=== PATIENT | male | born 1955 | race Two or more races ===

== ENCOUNTER 2021-03-08 13:17 | Inpatient (IN) | payer MEDICARE, MEDICAID ==
[2021-03-08] VITALS (28 sets, daily range): BP systolic 70–116; BP diastolic 23–78
[~2021-03-08] VITALS: Ht 177.8 cm; Wt 119.0 kg
[2021-03-08 14:27] LABS: Basophils # (auto) 0.1 10 ^3/uL (0-0.2); Basophils % (auto) 0.4 % (0.0-2.0); Eosinophils # (auto) 0.1 10 ^3/uL (0-0.8); Eosinophils % (auto) 0.8 % (0.0-7.0); Hematocrit 12.6 % (41.0-53.0); Lymphocytes # (auto) 0.7 10 ^3/uL (0.4-5.4); Lymphocytes % (auto) 4.4 % (10.0-50.0); Mean Corpuscular Hemoglobin 32.5 pg (28.0-32.0); Mean Corpuscular Hgb Conc. 32.1 g/dL (32.0-36.0); Mean Corpuscular Volume 101.5 fL (80.0-100.0); Monocytes # (auto) 0.8 10 ^3/uL (0-1.3); Monocytes % (auto) 5.3 % (0.0-12.0); Neutrophils # (auto) 13.1 10 ^3/uL (1.6-8.6); Neutrophils % (auto) 89.1 % (37.0-80.0); Nucleated Red Blood Cells % 0.4 %; Red Blood Cells 1.24 10^6/uL (4.5-5.90); Red Cell Distribution Width 18.7 % (11.8-14.3); White Blood Cell 14.8 10^3/uL (4.4-10.8)
[2021-03-08 14:38] LABS: INR 1.11 (0.9-1.15); Partial Thromboplastin Time 34.4 sec (23.0-31.2)
[2021-03-08 14:49] LABS: Albumin 2.3 g/dL (3.4-5.0); Calcium 8.4 mg/dL (8.5-10.1); Magnesium 2.7 mg/dL (1.6-2.6)
[2021-03-08 14:50] LABS: Lactic Acid w/Reflex 4.1 mmol/L (0.4-2.0)
[2021-03-08 14:56] LABS: BUN/Creatinine Ratio 11.7; Bilirubin, Total 0.4 mg/dL (0.2-1.0); Total Protein 6.3 g/dL (6.4-8.2)
[2021-03-08 15:00] LABS: Potassium 5.9 mmol/L (3.5-5.1)
[2021-03-08] MEDS ORDERED: CALCIUM GLUC 1,000mg/50ml-NS 50 ML IV ONE (15:15)
[2021-03-08] MEDS ORDERED: DEXTROSE (50%) 50ML SYRG IV ONE (15:15)
[2021-03-08] MEDS ORDERED: ALBUTEROL SULF 2.5 MG/0.5ML(0.5%) NEB SOLN NEB ONE (15:15)
[2021-03-08] MEDS ORDERED: InsuLIN REG 1unit/0.01ml Soln (100units/ml) IV ONE (15:15)
[2021-03-08] MEDS ORDERED: SODIUM ZIRCONIUM CYCL 10 GM PAK PO ONE (15:15)
[2021-03-08] MEDS ORDERED: SODIUM BICARBONATE 8.4 % INJ 50ML VIAL IV ONE (15:15)
[2021-03-08] MEDS ORDERED: SODIUM BICARBONATE 8.4% INJ 50ML SYRINGE ONE (15:18)
[2021-03-08] MEDS ORDERED: DEXTROSE 50% SYRINGE 50 ML IV ONE (15:18)
[2021-03-08] MEDS ORDERED: ACETAMINOPHEN 500 MG TAB PO PRN (15:45)
[2021-03-08] MEDS ORDERED: NITROGLYCERIN 0.4 MG SL TAB SL PRN (15:45)
[2021-03-08] MEDS ORDERED: VANCOMYCIN PER PHARMACY 0 MG IV SCH (15:45)
[2021-03-08] MEDS ORDERED: ONDANSETRON HCL 4 MG/2 ML VIAL IV PRN (15:45)
[2021-03-08] MEDS ORDERED: MORPHINE SULFATE INJECTION 2 MG/ML SYRG IV PRN ×2 (15:45)
[2021-03-08] MEDS ORDERED: hydrALAZINE HCL 20 MG/ML VL IV PRN (15:45)
[2021-03-08] MEDS: PIPERACILLIN-TAZOB 3.375GM 100 ML IV SCH ×2 (16:00→23:04)
[2021-03-08] MEDS ORDERED: D5W 5% IV ONE (16:30)
[2021-03-08] MEDS ORDERED: VANCOMYCIN IV ONE (16:30)
[2021-03-08] MEDS ORDERED: DEXTROSE (50%) 50ML SYRG IV PRN (18:45)
[2021-03-08] MEDS: InsuLIN REG 1unit/0.01ml Soln (100units/ml) SC SCH (20:00)
[2021-03-08] MEDS: ACCU-CHEK COMFORT CURVE STRIP VI SCH (20:00)
[2021-03-08] MEDS: METOPROLOL TARTRATE 25 MG TAB PO SCH (22:00)
[2021-03-08] MEDS: ATORVASTATIN 20 MG TAB PO SCH (23:03)
[2021-03-09] VITALS (66 sets, daily range): BP systolic 80–165; BP diastolic 21–68
[2021-03-09] MEDS: InsuLIN REG 1unit/0.01ml Soln (100units/ml) SC SCH ×6 (00:18→20:00)
[2021-03-09] MEDS: ACCU-CHEK COMFORT CURVE STRIP VI SCH ×6 (00:18→20:17)
[2021-03-09] MEDS: PIPERACILLIN-TAZOB 3.375GM 100 ML IV SCH (04:00)
[2021-03-09 05:52] LABS: Basophils # (auto) 0 10 ^3/uL (0-0.2); Eosinophils # (auto) 0.1 10 ^3/uL (0-0.8); Eosinophils % (auto) 0.5 % (0.0-7.0); Lymphocytes # (auto) 0.8 10 ^3/uL (0.4-5.4)
[2021-03-09 05:53] LABS: Basophils % (auto) 0.3 % (0.0-2.0); Hematocrit 17.6 % (41.0-53.0); Lymphocytes % (auto) 6.9 % (10.0-50.0); Mean Corpuscular Hemoglobin 31.8 pg (28.0-32.0); Mean Corpuscular Hgb Conc. 33.4 g/dL (32.0-36.0); Mean Corpuscular Volume 95.2 fL (80.0-100.0); Monocytes # (auto) 0.8 10 ^3/uL (0-1.3); Monocytes % (auto) 6.1 % (0.0-12.0); Neutrophils # (auto) 10.7 10 ^3/uL (1.6-8.6); Neutrophils % (auto) 86.2 % (37.0-80.0); Nucleated Red Blood Cells % 0.5 %; Red Blood Cells 1.85 10^6/uL (4.5-5.90); Red Cell Distribution Width 18.6 % (11.8-14.3); White Blood Cell 12.4 10^3/uL (4.4-10.8)
[2021-03-09 06:10] LABS: BUN/Creatinine Ratio 11.7; Calcium 8.3 mg/dL (8.5-10.1)
[2021-03-09 06:12] LABS: Hemoglobin 5.9 g/dL (13.5-17.5); Potassium 5.7 mmol/L (3.5-5.1)
[2021-03-09 06:13] LABS: INR 1.08 (0.9-1.15); Partial Thromboplastin Time 34.3 sec (23.0-31.2)
[2021-03-09] MEDS ORDERED: SODIUM ZIRCONIUM CYCL 10 GM PAK PO ONE (07:15)
[2021-03-09] MEDS: METOPROLOL TARTRATE 25 MG TAB PO SCH ×2 (10:00→22:32)
[2021-03-09] MEDS ORDERED: FAMOTIDINE 20 MG TAB PO SCH (10:00)
[2021-03-09] MEDS: LISINOPRIL 10 MG TAB PO SCH (10:00)
[2021-03-09] MEDS ORDERED: SIMV-8 PO (11:04)
[2021-03-09] MEDS ORDERED: LEVEMIR SC (11:04)
[2021-03-09] MEDS ORDERED: ASPI-498 OR (11:04)
[2021-03-09] MEDS ORDERED: ERGO2000 PO (11:04)
[2021-03-09] MEDS ORDERED: GABA100C9 PO (11:04)
[2021-03-09] MEDS ORDERED: BUME1TAB3 PO (11:04)
[2021-03-09] MEDS ORDERED: INSUINJ18 SC (11:04)
[2021-03-09] MEDS ORDERED: FERR1TAB17 PO (11:04)
[2021-03-09] MEDS ORDERED: B-CO-5 PO (11:04)
[2021-03-09] MEDS: FAMOTIDINE 20 MG TAB PO SCH (11:09)
[2021-03-09] MEDS: ASPirin-EC 81 mg tab PO SCH (11:09)
[2021-03-09] MEDS: PIPERACILLIN-TAZOB 2.25GM 50 ML IV SCH ×2 (15:53→20:17)
[2021-03-09] MEDS: Glucerna Carbsteady SHAKE Vanilla 8oz PO SCH ×2 (15:54→17:12)
[2021-03-09] MEDS ORDERED: VANCOMYCIN 500 MG in D5W 5% 100 ML IV ONE (16:00)
[2021-03-09] MEDS: HYDROcodone-ACET 5/325MG TAB PO PRN (17:08)
[2021-03-09] MEDS: BUMETANIDE 2.5mg/10ml (0.25 mg/ml) INJ IV SCH (17:09)
[2021-03-09 19:47] LABS: Hematocrit 22.4 % (41.0-53.0); Hemoglobin 7.7 g/dL (13.5-17.5)
[2021-03-09 20:04] LABS: Potassium 3.9 mmol/L (3.5-5.1)
[2021-03-09 20:05] LABS: BUN/Creatinine Ratio 11.4
[2021-03-09] MEDS ORDERED: EPOETIN ALFA-EPBX 10,000 UNIT/1ML VIAL IV ONE (21:00)
[2021-03-09] MEDS: ATORVASTATIN 20 MG TAB PO SCH (22:32)
[2021-03-10] VITALS (50 sets, daily range): BP systolic 98–164; BP diastolic 23–110
[2021-03-10] MEDS: PIPERACILLIN-TAZOB 2.25GM 50 ML IV SCH ×3 (04:00→20:05)
[2021-03-10] MEDS: InsuLIN REG 1unit/0.01ml Soln (100units/ml) SC SCH ×6 (04:00→18:00)
[2021-03-10] MEDS: ACCU-CHEK COMFORT CURVE STRIP VI SCH ×7 (04:00→23:59)
[2021-03-10] MEDS: BUMETANIDE 2.5mg/10ml (0.25 mg/ml) INJ IV SCH ×2 (04:52→18:00)
[2021-03-10 06:04] LABS: Basophils # (auto) 0.1 10 ^3/uL (0-0.2); Basophils % (auto) 0.4 % (0.0-2.0); Eosinophils # (auto) 0.1 10 ^3/uL (0-0.8); Eosinophils % (auto) 0.7 % (0.0-7.0); Hematocrit 22.8 % (41.0-53.0); Hemoglobin 7.7 g/dL (13.5-17.5); Lymphocytes # (auto) 0.8 10 ^3/uL (0.4-5.4); Lymphocytes % (auto) 5.9 % (10.0-50.0); Mean Corpuscular Hemoglobin 31.8 pg (28.0-32.0); Mean Corpuscular Hgb Conc. 33.6 g/dL (32.0-36.0); Mean Corpuscular Volume 94.6 fL (80.0-100.0); Monocytes # (auto) 0.9 10 ^3/uL (0-1.3); Neutrophils # (auto) 11.4 10 ^3/uL (1.6-8.6); Nucleated Red Blood Cells % 0.1 %; Red Blood Cells 2.41 10^6/uL (4.5-5.90); Red Cell Distribution Width 18.4 % (11.8-14.3); White Blood Cell 13.3 10^3/uL (4.4-10.8)
[2021-03-10 06:15] LABS: INR 1.14 (0.9-1.15); Partial Thromboplastin Time 34.5 sec (23.0-31.2)
[2021-03-10 06:20] LABS: Albumin 2.3 g/dL (3.4-5.0); BUN/Creatinine Ratio 10.7; Calcium 8.6 mg/dL (8.5-10.1); Potassium 4.1 mmol/L (3.5-5.1)
[2021-03-10 06:24] LABS: Bilirubin, Total 0.7 mg/dL (0.2-1.0); Total Protein 6.4 g/dL (6.4-8.2)
[2021-03-10] MEDS: Glucerna Carbsteady SHAKE Vanilla 8oz PO SCH ×4 (08:00→18:00)
[2021-03-10] MEDS ORDERED: IODIXANOL 320MG/ML 100ML BTL IV ONE ×2 (09:35→09:36)
[2021-03-10] MEDS ORDERED: LIDOCAINE 2%HCL (LOCAL ANESTH.) INJ 20ML MDV ONE (09:35)
[2021-03-10] MEDS: ASPirin-EC 81 mg tab PO SCH (10:00)
[2021-03-10] MEDS: METOPROLOL TARTRATE 25 MG TAB PO SCH ×2 (10:00→20:45)
[2021-03-10] MEDS: LISINOPRIL 10 MG TAB PO SCH (10:00)
[2021-03-10] MEDS ORDERED: SODIUM CHL 0.9% 0 ML ONE (10:07)
[2021-03-10] MEDS ORDERED: fentaNYL CITRATE 100 MCG/2 ML VL ONE (10:07)
[2021-03-10] MEDS ORDERED: ANGIOMAX 250 MG VIAL IV ONE (10:07)
[2021-03-10] MEDS ORDERED: MIDAZOLAM HCL 2MG/2ML 2ml VIAL (1mg/ml) ONE (10:07)
[2021-03-10] MEDS: GABAPENTIN 100 MG CAP PO SCH ×2 (14:32→20:45)
[2021-03-10] MEDS ORDERED: HYDR-4072 PO (20:08)
[2021-03-10] MEDS ORDERED: CLOP75TA70 PO (20:08)
[2021-03-10] MEDS ORDERED: ASPI1TAB91 PO (20:08)
[2021-03-10] MEDS ORDERED: FERR-20 PO (20:08)
[2021-03-10] MEDS ORDERED: ASCO250T10 PO (20:08)
[2021-03-10] MEDS ORDERED: ERGO1CAP23 PO (20:08)
[2021-03-10] MEDS ORDERED: INSU1INJ5 SC ×2 (20:08)
[2021-03-10] MEDS ORDERED: CARV6.2551 PO (20:08)
[2021-03-10] MEDS: ATORVASTATIN 20 MG TAB PO SCH (20:45)
[2021-03-11] VITALS (35 sets, daily range): BP systolic 97–156; BP diastolic 21–72
[2021-03-11] MEDS: PIPERACILLIN-TAZOB 2.25GM 50 ML IV SCH ×3 (03:39→19:52)
[2021-03-11] MEDS: ACCU-CHEK COMFORT CURVE STRIP VI SCH ×3 (05:02→18:06)
[2021-03-11] MEDS: BUMETANIDE 2.5mg/10ml (0.25 mg/ml) INJ IV SCH ×2 (05:02→18:06)
[2021-03-11] MEDS: GABAPENTIN 100 MG CAP PO SCH ×3 (05:04→21:18)
[2021-03-11] MEDS: InsuLIN REG 1unit/0.01ml Soln (100units/ml) SC SCH ×4 (05:04→18:25)
[2021-03-11 06:15] LABS: Basophils # (auto) 0.1 10 ^3/uL (0-0.2); Eosinophils # (auto) 0.2 10 ^3/uL (0-0.8); Lymphocytes % (auto) 5.7 % (10.0-50.0); Mean Corpuscular Volume 96.6 fL (80.0-100.0)
[2021-03-11 06:18] LABS: Basophils % (auto) 0.6 % (0.0-2.0); Eosinophils % (auto) 1.7 % (0.0-7.0); Hematocrit 24.2 % (41.0-53.0); Lymphocytes # (auto) 0.7 10 ^3/uL (0.4-5.4); Mean Corpuscular Hemoglobin 31.9 pg (28.0-32.0); Monocytes # (auto) 1.1 10 ^3/uL (0-1.3); Monocytes % (auto) 8.8 % (0.0-12.0); Neutrophils # (auto) 10.8 10 ^3/uL (1.6-8.6); Neutrophils % (auto) 83.2 % (37.0-80.0); Red Blood Cells 2.51 10^6/uL (4.5-5.90); Red Cell Distribution Width 18.6 % (11.8-14.3)
[2021-03-11 06:30] LABS: Potassium 4.5 mmol/L (3.5-5.1)
[2021-03-11 06:45] LABS: Albumin 2.2 g/dL (3.4-5.0); BUN/Creatinine Ratio 9.7; Bilirubin, Total 0.8 mg/dL (0.2-1.0); Calcium 8.6 mg/dL (8.5-10.1); Total Protein 6.5 g/dL (6.4-8.2)
[2021-03-11] MEDS ORDERED: SODIUM CHL 0.9% 1000 ML BAG XX ONE (07:00)
[2021-03-11] MEDS: Glucerna Carbsteady SHAKE Vanilla 8oz PO SCH ×3 (08:00→18:06)
[2021-03-11] MEDS: METOPROLOL TARTRATE 25 MG TAB PO SCH ×2 (10:00→21:18)
[2021-03-11] MEDS: LISINOPRIL 10 MG TAB PO SCH (10:00)
[2021-03-11] MEDS: ASPirin-EC 81 mg tab PO SCH (10:59)
[2021-03-11] MEDS: FAMOTIDINE 20 MG TAB PO SCH (10:59)
[2021-03-11] MEDS ORDERED: VANCOMYCIN 1GM/250ML 250 ML IV ONE (16:00)
[2021-03-11 17:29] LABS: % Iron Saturation 9.9 % (20-55)
[2021-03-11] MEDS ORDERED: EPOETIN ALFA-EPBX 10,000 UNIT/1ML VIAL SC ONE (21:00)
[2021-03-11] MEDS: ATORVASTATIN 20 MG TAB PO SCH (21:18)
[2021-03-12] VITALS (38 sets, daily range): BP systolic 108–173; BP diastolic 25–68
[2021-03-12] MEDS: ACCU-CHEK COMFORT CURVE STRIP VI SCH ×4 (00:02→18:21)
[2021-03-12] MEDS: InsuLIN REG 1unit/0.01ml Soln (100units/ml) SC SCH ×4 (00:03→18:40)
[2021-03-12] MEDS: PIPERACILLIN-TAZOB 2.25GM 50 ML IV SCH ×3 (04:00→20:27)
[2021-03-12] MEDS: BUMETANIDE 2.5mg/10ml (0.25 mg/ml) INJ IV SCH ×2 (04:36→18:21)
[2021-03-12 06:00] LABS: Eosinophils # (auto) 0.3 10 ^3/uL (0-0.8); Hemoglobin 7.1 g/dL (13.5-17.5); Mean Corpuscular Hemoglobin 32.1 pg (28.0-32.0)
[2021-03-12 06:04] LABS: Basophils # (auto) 0.1 10 ^3/uL (0-0.2); Basophils % (auto) 0.5 % (0.0-2.0); Eosinophils % (auto) 2.7 % (0.0-7.0); Hematocrit 21.2 % (41.0-53.0); Lymphocytes # (auto) 0.7 10 ^3/uL (0.4-5.4); Lymphocytes % (auto) 5.4 % (10.0-50.0); Mean Corpuscular Hgb Conc. 33.5 g/dL (32.0-36.0); Mean Corpuscular Volume 95.8 fL (80.0-100.0); Monocytes # (auto) 1.1 10 ^3/uL (0-1.3); Monocytes % (auto) 9.1 % (0.0-12.0); Neutrophils # (auto) 10.1 10 ^3/uL (1.6-8.6); Neutrophils % (auto) 82.3 % (37.0-80.0); Nucleated Red Blood Cells % 0.2 %; Red Blood Cells 2.21 10^6/uL (4.5-5.90); Red Cell Distribution Width 18.6 % (11.8-14.3); White Blood Cell 12.2 10^3/uL (4.4-10.8)
[2021-03-12 06:18] LABS: Calcium 8.3 mg/dL (8.5-10.1); Magnesium 2.2 mg/dL (1.6-2.6)
[2021-03-12] MEDS: GABAPENTIN 100 MG CAP PO SCH ×3 (06:20→22:19)
[2021-03-12 06:27] LABS: Albumin 2.3 g/dL (3.4-5.0); BUN/Creatinine Ratio 7.7; Bilirubin, Total 0.7 mg/dL (0.2-1.0); Total Protein 6.2 g/dL (6.4-8.2)
[2021-03-12] MEDS: DOPamine 1600MCG/ML D5W 250 ML IV SCH (06:59)
[2021-03-12] MEDS: Glucerna Carbsteady SHAKE Vanilla 8oz PO SCH ×3 (08:00→18:00)
[2021-03-12] MEDS: METOPROLOL TARTRATE 25 MG TAB PO SCH (09:48)
[2021-03-12] MEDS: LISINOPRIL 10 MG TAB PO SCH (09:49)
[2021-03-12] MEDS: ASPirin-EC 81 mg tab PO SCH (09:49)
[2021-03-12] MEDS ORDERED: ASPirin-EC 81 mg tab PO SCH (10:00)
[2021-03-12 13:54] LABS: Hematocrit 27.4 % (41.0-53.0); Hemoglobin 8.9 g/dL (13.5-17.5)
[2021-03-12] MEDS ORDERED: amLODIPine BESYLATE 5 MG TAB PO ONE (14:45)
[2021-03-12] MEDS ORDERED: PANTOPRAZOLE 40 MG/10 ML VIAL INJ IV ONE (15:45)
[2021-03-12] MEDS ORDERED: PANTOPRAZOLE 80 MG in SODIUM CHL 0.9% 80 ML IV SCH ×2 (16:38→16:47)
[2021-03-12] MEDS: PANTOPRAZOLE 80 MG in SODIUM CHL 0.9% 80 ML IV SCH (22:00)
[2021-03-12] MEDS ORDERED: PANTOPRAZOLE 40 MG/10 ML VIAL INJ IV SCH (22:00)
[2021-03-12] MEDS: ATORVASTATIN 20 MG TAB PO SCH (22:18)
[2021-03-13] VITALS (7 sets, daily range): BP systolic 109–150; BP diastolic 46–81
[2021-03-13] MEDS: ACCU-CHEK COMFORT CURVE STRIP VI SCH ×5 (00:07→23:30)
[2021-03-13] MEDS: InsuLIN REG 1unit/0.01ml Soln (100units/ml) SC SCH ×5 (00:09→23:30)
[2021-03-13] MEDS ORDERED: PANTOPRAZOLE 40 MG/10 ML VIAL INJ IV ONE (00:44)
[2021-03-13] MEDS: PIPERACILLIN-TAZOB 2.25GM 50 ML IV SCH ×3 (03:53→20:38)
[2021-03-13] MEDS: BUMETANIDE 2.5mg/10ml (0.25 mg/ml) INJ IV SCH ×2 (05:58→18:00)
[2021-03-13] MEDS: GABAPENTIN 100 MG CAP PO SCH ×3 (06:00→22:01)
[2021-03-13 06:33] LABS: Basophils # (auto) 0.1 10 ^3/uL (0-0.2); Basophils % (auto) 0.7 % (0.0-2.0); Eosinophils # (auto) 0.4 10 ^3/uL (0-0.8); Eosinophils % (auto) 3.3 % (0.0-7.0); Hematocrit 22.1 % (41.0-53.0); Hemoglobin 7.4 g/dL (13.5-17.5); Lymphocytes # (auto) 0.8 10 ^3/uL (0.4-5.4); Lymphocytes % (auto) 6.1 % (10.0-50.0); Mean Corpuscular Hemoglobin 32.3 pg (28.0-32.0); Mean Corpuscular Hgb Conc. 33.6 g/dL (32.0-36.0); Mean Corpuscular Volume 96.1 fL (80.0-100.0); Monocytes # (auto) 1.3 10 ^3/uL (0-1.3); Monocytes % (auto) 10.2 % (0.0-12.0); Neutrophils # (auto) 10.4 10 ^3/uL (1.6-8.6); Neutrophils % (auto) 79.7 % (37.0-80.0); Nucleated Red Blood Cells % 0.2 %; Red Cell Distribution Width 18.8 % (11.8-14.3)
[2021-03-13] MEDS: Glucerna Carbsteady SHAKE Vanilla 8oz PO SCH ×3 (08:00→18:12)
[2021-03-13] MEDS: ASPirin-EC 81 mg tab PO SCH (08:55)
[2021-03-13] MEDS: PANTOPRAZOLE 80 MG in SODIUM CHL 0.9% 80 ML IV SCH ×2 (10:50→22:01)
[2021-03-13] MEDS: LISINOPRIL 10 MG TAB PO SCH (11:22)
[2021-03-13] MEDS: FAMOTIDINE 20 MG TAB PO SCH (11:22)
[2021-03-13] MEDS: amLODIPine BESYLATE 5 MG TAB PO SCH (11:23)
[2021-03-13] MEDS ORDERED: fentaNYL CITRATE 100 MCG/2 ML VL ONE (15:04)
[2021-03-13] MEDS ORDERED: LIDOCAINE 2%HCL (LOCAL ANESTH.) INJ 20ML MDV ONE (15:04)
[2021-03-13] MEDS ORDERED: MIDAZOLAM HCL 2MG/2ML 2ml VIAL (1mg/ml) ONE (15:04)
[2021-03-13] MEDS ORDERED: VANCOMYCIN 1GM/250ML 250 ML IV ONE (15:04)
[2021-03-13] MEDS ORDERED: VANCOMYCIN HCL 1000 MG VL ONE (15:04)
[2021-03-13] MEDS ORDERED: FUROSEMIDE 20 MG/2 ML VIAL ONE (15:22)
[2021-03-13] MEDS: DOPamine 1600MCG/ML D5W 250 ML IV SCH (20:44)
[2021-03-13] MEDS: ATORVASTATIN 20 MG TAB PO SCH (22:01)
[2021-03-14] MEDS: PIPERACILLIN-TAZOB 2.25GM 50 ML IV SCH ×3 (04:30→20:48)
[2021-03-14] MEDS: HYDROcodone-ACET 5/325MG TAB PO PRN ×2 (04:50→15:02)
[2021-03-14 05:00] VITALS: BP 109/61
[2021-03-14 06:01] LABS: Basophils # (auto) 0.1 10 ^3/uL (0-0.2); Basophils % (auto) 0.7 % (0.0-2.0); Eosinophils # (auto) 0.5 10 ^3/uL (0-0.8); Eosinophils % (auto) 3.9 % (0.0-7.0); Hematocrit 23.2 % (41.0-53.0); Hemoglobin 7.5 g/dL (13.5-17.5); Lymphocytes # (auto) 0.5 10 ^3/uL (0.4-5.4); Lymphocytes % (auto) 4.4 % (10.0-50.0); Mean Corpuscular Hemoglobin 31.9 pg (28.0-32.0); Mean Corpuscular Hgb Conc. 32.2 g/dL (32.0-36.0); Mean Corpuscular Volume 98.9 fL (80.0-100.0); Monocytes # (auto) 0.9 10 ^3/uL (0-1.3); Monocytes % (auto) 7.9 % (0.0-12.0); Neutrophils # (auto) 9.9 10 ^3/uL (1.6-8.6); Neutrophils % (auto) 83.1 % (37.0-80.0); Nucleated Red Blood Cells % 0.1 %; Red Blood Cells 2.35 10^6/uL (4.5-5.90); Red Cell Distribution Width 18.3 % (11.8-14.3); White Blood Cell 11.9 10^3/uL (4.4-10.8)
[2021-03-14] MEDS: GABAPENTIN 100 MG CAP PO SCH ×3 (06:14→20:49)
[2021-03-14] MEDS: ACCU-CHEK COMFORT CURVE STRIP VI SCH ×3 (06:14→18:00)
[2021-03-14] MEDS: BUMETANIDE 2.5mg/10ml (0.25 mg/ml) INJ IV SCH ×2 (06:15→18:00)
[2021-03-14] MEDS: InsuLIN REG 1unit/0.01ml Soln (100units/ml) SC SCH ×3 (06:19→18:00)
[2021-03-14 06:24] LABS: BUN/Creatinine Ratio 7.2; Calcium 8.6 mg/dL (8.5-10.1); Potassium 4.4 mmol/L (3.5-5.1)
[2021-03-14] MEDS: DOPamine 1600MCG/ML D5W 250 ML IV SCH (06:25)
[2021-03-14] MEDS ORDERED: SODIUM CHL 0.9% 1000 ML BAG XX ONE (07:00)
[2021-03-14] MEDS: Glucerna Carbsteady SHAKE Vanilla 8oz PO SCH ×3 (08:00→18:00)
[2021-03-14 09:00] VITALS: BP 112/60
[2021-03-14] MEDS: LISINOPRIL 10 MG TAB PO SCH (10:00)
[2021-03-14] MEDS: amLODIPine BESYLATE 5 MG TAB PO SCH (10:00)
[2021-03-14] MEDS: PANTOPRAZOLE 80 MG in SODIUM CHL 0.9% 80 ML IV SCH ×2 (11:21→21:44)
[2021-03-14 12:34] VITALS: BP 132/69
[2021-03-14 16:36] VITALS: BP 118/55
[2021-03-14 20:00] VITALS: BP 114/54
[2021-03-14] MEDS: ATORVASTATIN 20 MG TAB PO SCH (20:49)
[2021-03-14] MEDS ORDERED: EPOETIN ALFA-EPBX 10,000 UNIT/1ML VIAL SC ONE (21:00)
[2021-03-14 21:34] VITALS: BP 110/59
[2021-03-15] MEDS: HYDROcodone-ACET 5/325MG TAB PO PRN (00:46)
[2021-03-15] MEDS: PIPERACILLIN-TAZOB 2.25GM 50 ML IV SCH ×3 (04:41→20:29)
[2021-03-15] MEDS: BUMETANIDE 2.5mg/10ml (0.25 mg/ml) INJ IV SCH ×2 (04:42→18:16)
[2021-03-15 04:50] VITALS: BP 125/62
[2021-03-15] MEDS: InsuLIN REG 1unit/0.01ml Soln (100units/ml) SC SCH ×4 (05:08→18:28)
[2021-03-15] MEDS: ACCU-CHEK COMFORT CURVE STRIP VI SCH ×4 (05:20→18:17)
[2021-03-15] MEDS: GABAPENTIN 100 MG CAP PO SCH ×3 (05:37→22:01)
[2021-03-15 06:19] LABS: Basophils # (auto) 0.1 10 ^3/uL (0-0.2); Basophils % (auto) 0.6 % (0.0-2.0); Eosinophils # (auto) 0.4 10 ^3/uL (0-0.8); Eosinophils % (auto) 3.6 % (0.0-7.0); Hematocrit 22.1 % (41.0-53.0); Hemoglobin 7.3 g/dL (13.5-17.5); Lymphocytes # (auto) 0.7 10 ^3/uL (0.4-5.4); Lymphocytes % (auto) 5.5 % (10.0-50.0); Mean Corpuscular Hemoglobin 32.4 pg (28.0-32.0); Mean Corpuscular Hgb Conc. 33.2 g/dL (32.0-36.0); Mean Corpuscular Volume 97.7 fL (80.0-100.0); Monocytes # (auto) 0.9 10 ^3/uL (0-1.3); Monocytes % (auto) 7.2 % (0.0-12.0); Neutrophils # (auto) 10.3 10 ^3/uL (1.6-8.6); Neutrophils % (auto) 83.1 % (37.0-80.0); Red Blood Cells 2.26 10^6/uL (4.5-5.90); Red Cell Distribution Width 18.8 % (11.8-14.3); White Blood Cell 12.4 10^3/uL (4.4-10.8)
[2021-03-15 06:26] LABS: Albumin 2.2 g/dL (3.4-5.0); Calcium 8.2 mg/dL (8.5-10.1); Potassium 3.8 mmol/L (3.5-5.1)
[2021-03-15 06:32] LABS: Bilirubin, Total 0.6 mg/dL (0.2-1.0); Total Protein 6.2 g/dL (6.4-8.2)
[2021-03-15] MEDS: DOPamine 1600MCG/ML D5W 250 ML IV SCH (06:45)
[2021-03-15 08:00] VITALS: BP 136/68
[2021-03-15 08:42] VITALS: BP 136/68
[2021-03-15] MEDS: FAMOTIDINE 20 MG TAB PO SCH (09:58)
[2021-03-15] MEDS: amLODIPine BESYLATE 5 MG TAB PO SCH (09:58)
[2021-03-15] MEDS: LISINOPRIL 10 MG TAB PO SCH (09:58)
[2021-03-15] MEDS: Glucerna Carbsteady SHAKE Vanilla 8oz PO SCH ×3 (10:11→18:17)
[2021-03-15] MEDS: PANTOPRAZOLE 80 MG in SODIUM CHL 0.9% 80 ML IV SCH ×2 (10:12→22:00)
[2021-03-15 12:50] VITALS: BP 136/62
[2021-03-15 16:50] VITALS: BP 129/75
[2021-03-15 19:30] VITALS: BP 128/85
[2021-03-15] MEDS: ATORVASTATIN 20 MG TAB PO SCH (22:01)
[2021-03-16] MEDS: InsuLIN REG 1unit/0.01ml Soln (100units/ml) SC SCH ×5 (06:00→22:35)
[2021-03-16] MEDS: DOPamine 1600MCG/ML D5W 250 ML IV SCH (06:45)
[2021-03-16] MEDS: PIPERACILLIN-TAZOB 2.25GM 50 ML IV SCH ×3 (07:02→21:18)
[2021-03-16] MEDS: ACCU-CHEK COMFORT CURVE STRIP VI SCH ×5 (07:02→22:36)
[2021-03-16] MEDS: BUMETANIDE 2.5mg/10ml (0.25 mg/ml) INJ IV SCH ×2 (07:04→18:45)
[2021-03-16] MEDS: GABAPENTIN 100 MG CAP PO SCH ×3 (07:04→22:35)
[2021-03-16 09:00] VITALS: BP 126/58
[2021-03-16] MEDS: Glucerna Carbsteady SHAKE Vanilla 8oz PO SCH ×3 (10:58→18:00)
[2021-03-16] MEDS: amLODIPine BESYLATE 5 MG TAB PO SCH (10:58)
[2021-03-16] MEDS: LISINOPRIL 10 MG TAB PO SCH (10:59)
[2021-03-16] MEDS: PANTOPRAZOLE 80 MG in SODIUM CHL 0.9% 80 ML IV SCH ×2 (11:00→22:36)
[2021-03-16 13:16] VITALS: BP 132/56
[2021-03-16 17:14] VITALS: BP 140/70
[2021-03-16 19:30] VITALS: BP 128/85
[2021-03-16 22:00] VITALS: BP 113/55
[2021-03-16] MEDS: ATORVASTATIN 20 MG TAB PO SCH (22:36)
[2021-03-17] MEDS: PIPERACILLIN-TAZOB 2.25GM 50 ML IV SCH ×2 (04:10→11:37)
[2021-03-17 05:00] VITALS: BP 136/57
[2021-03-17] MEDS: BUMETANIDE 2.5mg/10ml (0.25 mg/ml) INJ IV SCH ×2 (05:31→18:00)
[2021-03-17] MEDS: GABAPENTIN 100 MG CAP PO SCH ×2 (05:33→14:00)
[2021-03-17] MEDS: ACCU-CHEK COMFORT CURVE STRIP VI SCH ×3 (05:33→18:00)
[2021-03-17] MEDS: InsuLIN REG 1unit/0.01ml Soln (100units/ml) SC SCH ×3 (06:00→18:00)
[2021-03-17 07:31] LABS: Basophils # (auto) 0.1 10 ^3/uL (0-0.2); Eosinophils # (auto) 0.5 10 ^3/uL (0-0.8)
[2021-03-17 07:37] LABS: Basophils % (auto) 0.7 % (0.0-2.0); Eosinophils % (auto) 4.4 % (0.0-7.0); Hematocrit 21.8 % (41.0-53.0); Hemoglobin 7.3 g/dL (13.5-17.5); Lymphocytes # (auto) 0.8 10 ^3/uL (0.4-5.4); Lymphocytes % (auto) 6.9 % (10.0-50.0); Mean Corpuscular Hemoglobin 32.6 pg (28.0-32.0); Mean Corpuscular Hgb Conc. 33.3 g/dL (32.0-36.0); Mean Corpuscular Volume 97.8 fL (80.0-100.0); Monocytes % (auto) 8.6 % (0.0-12.0); Neutrophils # (auto) 9.7 10 ^3/uL (1.6-8.6); Neutrophils % (auto) 79.4 % (37.0-80.0); Nucleated Red Blood Cells % 0.2 %; Red Blood Cells 2.23 10^6/uL (4.5-5.90); Red Cell Distribution Width 18.6 % (11.8-14.3); White Blood Cell 12.2 10^3/uL (4.4-10.8)
[2021-03-17 07:52] LABS: Calcium 8.7 mg/dL (8.5-10.1); Potassium 3.5 mmol/L (3.5-5.1)
[2021-03-17 07:55] LABS: BUN/Creatinine Ratio 4.5
[2021-03-17] MEDS: Glucerna Carbsteady SHAKE Vanilla 8oz PO SCH ×3 (08:00→18:00)
[2021-03-17 09:00] VITALS: BP_SYST 120; BP_SYST 161; BP_DIAS 57; BP_DIAS 74
[2021-03-17] MEDS: FAMOTIDINE 20 MG TAB PO SCH (09:58)
[2021-03-17] MEDS: amLODIPine BESYLATE 5 MG TAB PO SCH (10:00)
[2021-03-17] MEDS: PANTOPRAZOLE 80 MG in SODIUM CHL 0.9% 80 ML IV SCH (10:00)
[2021-03-17] MEDS: LISINOPRIL 10 MG TAB PO SCH (10:00)
[2021-03-17 13:00] VITALS: BP 139/64
[2021-03-17] MEDS ORDERED: LOPERAMIDE HCL 2 MG CAP PO PRN (13:15)
[2021-03-17 17:00] VITALS: BP 139/40
== END 2021-03-17 18:35 | disposition home or self-care (01) | DRG 853 ==
LOC: ER 13:17 → EDBD 13:17 → TELE 15:39 → DOU IN ICU 16:23 → TELE-WESTW 03-12 23:45
PROVIDERS: ADMIT Nurse Practitioner Acute Care; ATTEND Internal Medicine
PROC: 30233N1 Transfusion of Nonautologous Red Blood Cells into Peripheral Vein, Percutaneous Approach (ICD-10-PCS; 2021-03-08)
PROC: 05HC33Z Insertion of Infusion Device into Left Basilic Vein, Percutaneous Approach (ICD-10-PCS; 2021-03-08)
PROC: B54NZZA Ultrasonography of Left Upper Extremity Veins, Guidance (ICD-10-PCS; 2021-03-08)
PROC: 0JH608Z Insertion of Defibrillator Generator into Chest Subcutaneous Tissue and Fascia, Open Approach (ICD-10-PCS; 2021-03-08)
PROC: 02HK3KZ Insertion of Defibrillator Lead into Right Ventricle, Percutaneous Approach (ICD-10-PCS; 2021-03-08)
PROC: 02H63KZ Insertion of Defibrillator Lead into Right Atrium, Percutaneous Approach (ICD-10-PCS; 2021-03-08)
PROC: B44HZZZ Ultrasonography of Bilateral Lower Extremity Arteries (ICD-10-PCS; 2021-03-08)
PROC: 5A12012 Performance of Cardiac Output, Single, Manual (ICD-10-PCS; 2021-03-09)
PROC: B2111ZZ Fluoroscopy of Multiple Coronary Arteries using Low Osmolar Contrast (ICD-10-PCS; principal; 2021-03-10)
PROC: B41D1ZZ Fluoroscopy of Aorta and Bilateral Lower Extremity Arteries using Low Osmolar Contrast (ICD-10-PCS; 2021-03-10)
PROC: 4A023N8 Measurement of Cardiac Sampling and Pressure, Bilateral, Percutaneous Approach (ICD-10-PCS; 2021-03-10)
PROC: B2151ZZ Fluoroscopy of Left Heart using Low Osmolar Contrast (ICD-10-PCS; 2021-03-10)
PROC: 5A1D70Z Performance of Urinary Filtration, Intermittent, Less than 6 Hours Per Day (ICD-10-PCS; 2021-03-14)
DX: A41.9 Sepsis, unspecified organism (principal); I21.A1 Myocardial infarction type 2; I46.9 Cardiac arrest, cause unspecified; N18.6 End stage renal disease; E43 Unspecified severe protein-calorie malnutrition; I50.43 Acute on chronic combined systolic (congestive) and diastolic (congestive) heart failure; E87.2 Acidosis; E87.1 Hypo-osmolality and hyponatremia; L03.116 Cellulitis of left lower limb; L03.115 Cellulitis of right lower limb; J98.11 Atelectasis; E11.52 Type 2 diabetes mellitus with diabetic peripheral angiopathy with gangrene; Z68.1 Body mass index [BMI] 19.9 or less, adult; J96.11 Chronic respiratory failure with hypoxia; K92.1 Melena; E88.09 Other disorders of plasma-protein metabolism, not elsewhere classified; E11.21 Type 2 diabetes mellitus with diabetic nephropathy; D64.9 Anemia, unspecified; E87.5 Hyperkalemia; E66.01 Morbid (severe) obesity due to excess calories; I44.0 Atrioventricular block, first degree; Z99.2 Dependence on renal dialysis; D63.1 Anemia in chronic kidney disease; I27.20 Pulmonary hypertension, unspecified; R65.20 Severe sepsis without septic shock; I48.0 Paroxysmal atrial fibrillation; E11.40 Type 2 diabetes mellitus with diabetic neuropathy, unspecified; Z20.822 Contact with and (suspected) exposure to COVID-19; S81.802A Unspecified open wound, left lower leg, initial encounter; I25.10 Atherosclerotic heart disease of native coronary artery without angina pectoris; E78.5 Hyperlipidemia, unspecified; S81.801A Unspecified open wound, right lower leg, initial encounter; X58.XXXA Exposure to other specified factors, initial encounter; Z80.42 Family history of malignant neoplasm of prostate; Y93.89 Activity, other specified; Y92.89 Other specified places as the place of occurrence of the external cause; Y99.8 Other external cause status
CPT/HCPCS: 33208; 36415; 36600; 51702; 70450; 71045; 71250; 73700; 75605; 76536; 76775; 78582; 80048; 80053; 80061; 80202; 82270; 82805; 82962; 83036; 83540; 83550; 83605; 83735; 83880; 84443; 84484; 85014; 85018; 85025; 85379; 85610; 85730; 86141; 86850; 86900; 86901; 86920; 87040; 87077; 87081; 87086; 87186; 87205; 87426; 90935; 92950; 93005; 93306; 93460; 93925; 93970; 96365; 96375; 97110; 97116; 97530; 99152; 99153; 99291; C1751; C9113; G0378; J1642; J1815; J2250; J2543; J7060; Q9967